=== PATIENT | male | born 1995 ===

== ENCOUNTER 2021-10-15 22:53 | Emergency (ER) | payer SELFPAY ==
--- NOTE | 2021-10-16 11:35 | XRay Report ---
Right foot-3 views INDICATION: right great toe pain and swelling.. COMPARISON: None available. IMPRESSION: There is a marginal erosion at the medial base of the great toe proximal phalanx suggest ing underlying erosive inflammatory arthropathy such as gout. Mild surrounding soft tissue swelling i s also present. Otherwise no acute osseous abnormality. Normal alignment. No significant DJD. Signer Name: Carlos Torres MD Signed: 10/16/2021 11:31 AM Workstation Name: [id number]
--- NOTE | 2021-10-16 11:39 | XRay Report ---
Right knee-3 views INDICATION: injury, pain and swelling.. COMPARISON: None available. IMPRESSION: No acute osseous abnormality. Old healed proximal fibular fracture. Normal alignment. Mi ld tricompartmental DJD. Mild soft tissue swelling about the knee especially medially and anteriorly . Signer Name: Carlos Torres MD Signed: 10/16/2021 11:34 AM Workstation Name: [id number]
[2021-10-16] MEDS ORDERED: KETOROLAC 10 MG TAB PO ONE (12:00)
[2021-10-16] MEDS ORDERED: ACETAMINOPHEN W/CODEINE 300-30 MG TAB PO ONE (12:00)
--- NOTE | 2021-10-16 12:07 | Emergency Department Report ---
ED Lower Extremity HPI - General Chief Complaint: Extremity Injury, Lower Stated Complaint: R LEG PAIN Time Seen by Provider: 10/16/21 10:55 Source: EMS Mode of arrival: Wheelchair Limitations: No Limitations - History of Present Illness Initial Comments: 26-year-old black male with a past medical history of asthma presents to the emergency department for evaluation of right knee and foot pain. He states that a few weeks ago he dropped a weight on his right leg while working out. He states that he was seen in the ER and had ankle of his x-ray that was okay but since then he has had persistent pain and swelling to right knee along with pain to the right great toe area. He denies any other injuries. Complaint: knee injury, foot injury -: Sudden, week(s) (2-3) Injury: Knee: Right, Toes: Right Type of Injury: blunt Place: other (At the gym) Severity scale (0 -10): 9 Worsens With: weight bearing, movement, palpation Context: other (Weight fell on area) Associated Symptoms: swelling, able to partially bear weight, ambulatory - Related Data Previous Rx's Medication Instructions Recorded Last Taken Type Ibuprofen [Motrin 600 MG tab] 600 mg PO Q8H PRN #30 tablet 10/16/21 Unknown Rx Allergies Allergy/AdvReac Type Severity Reaction Status Date / Time No Known Allergies Allergy Unverified 10/16/21 11:01 ED Review of Systems ROS: Stated complaint: R LEG PAIN Other details as noted in HPI Comment: All other systems reviewed and negative Constitutional: denies: chills, fever Respiratory: denies: shortness of breath, SOB with exertion, SOB at rest Cardiovascular: denies: chest pain, palpitations, dyspnea on exertion, orthopnea, edema, syncope, paroxysmal nocturnal dyspnea Gastrointestinal: denies: abdominal pain, nausea, vomiting Genitourinary: denies: urgency, dysuria Musculoskeletal: denies: back pain Neurological: denies: headache, weakness, numbness, paresthesias ED Past Medical Hx - Social History Smoking Status: Never Smoker Substance Use Type: None - Medications Home Medications: Home Medications Medication Instructions Recorded Confirmed Last Taken Type Ibuprofen [Motrin 600 MG tab] 600 mg PO Q8H PRN #30 tablet 10/16/21 Unknown Rx ED Physical Exam - General Limitations: No Limitations General appearance: alert, in no apparent distress - Head Head exam: Present: atraumatic, normocephalic - Eye Eye exam: Present: normal appearance. Absent: conjunctival injection - Neck Neck exam: Present: normal inspection. Absent: tenderness - Respiratory Respiratory exam: Absent: respiratory distress - Cardiovascular Cardiovascular Exam: Present: regular rate - GI/Abdominal GI/Abdominal exam: Absent: distended - Expanded Lower Extremity Exam Right Knee exam: Present: tenderness, swelling. Absent: normal inspection, abrasion, ecchymosis, dislocation, erythema Lower Leg exam: Present: normal inspection Ankle exam: Present: swelling Foot/Toe exam: Present: swelling (Right great toe area). Absent: normal inspection (Right great toe noted to have some swelling and healed sore), abrasion, ecchymosis, crepidus, dislocation, erythema Neuro vascular tendon exam: Present: no vascular compromise. Absent: pulse deficit, abnormal cap refill, motor deficit, sensory deficit, extremity cold to touch, pallor Gait: Positive: observed and limited by pain - Back Exam Back exam: Present: normal inspection. Absent: CVA tenderness (R), CVA tenderness (L) - Neurological Exam Neurological exam: Present: alert, oriented X3 - Psychiatric Psychiatric exam: Present: normal affect, normal mood - Skin Skin exam: Present: warm, dry, intact, normal color ED Course Vital Signs 10/15/21 10/16/21 22:55 12:21 Temperature 98.2 F Pulse Rate 74 65 Respiratory 18 16 Rate Blood Pressure 137/70 Blood Pressure 121/68 [Right] O2 Sat by Pulse 95 98 Oximetry ED Lower Extremity MDM - Radiology Data Radiology results: report reviewed, image reviewed Right knee x-ray: IMPRESSION: No acute osseous abnormality. Old healed proximal fibular fracture. Normal alignment. Mild tricompartmental DJD. Mild soft tissue swelling about the knee especially medially and anteriorly. Right foot x-ray: IMPRESSION: There is a marginal erosion at the medial base of the great toe proximal phalanx suggesting underlying erosive inflammatory arthropathy such as gout. Mild surrounding soft tissue swelling is also present. Otherwise no acute osseous abnormality. Normal alignment. No significant DJD. - Medical Decision Making 26-year-old black male with a past medical history of asthma presents to the emergency department for evaluation of right knee and foot pain. He states that a few weeks ago he dropped a weight on his right leg while working out. He states that he was seen in the ER and had ankle of his x-ray that was okay but since then he has had persistent pain and swelling to right knee along with pain to the right great toe area. He denies any other injuries Right foot and knee x-rays without any acute abnormalities noted. Patient noted to have old healed fibula fracture to right knee area. Patient is advised to take anti-inflammatories and follow-up with orthopedics or primary care provider if no improvement or worsening symptoms. He verbalized understanding of and agreement with plan of care. Critical care attestation.: If time is entered above; I have spent that time in minutes in the direct care of this critically ill patient, excluding procedure time. ED Disposition Clinical Impression: Pain of right great toe Right knee pain Qualifiers: Chronicity: acute Qualified Code(s): M25.561 - Pain in right knee Disposition: 01 HOME / SELF CARE / HOMELESS Is pt being admited?: No Does the pt Need Aspirin: No Condition: Stable Instructions: How to Use Cold Therapy, [id number], Acute Knee Pain, Adult, [id number], Joint Pain, [id number] Additional Instructions: Take medications as prescribed. Follow-up with primary care provider if no improvement or worsening symptoms. Prescriptions: Ibuprofen [Motrin 600 MG tab] 600 mg PO Q8H PRN #30 tablet PRN Reason: Pain Referrals: PRIMARY CARE, [Primary Care Provider] - 3-5 Days Forms: Work/School Release Form(ED) Time of Disposition: 12:06
[2021-10-16 12:23] VITALS: BP 121/68
== END 2021-10-16 12:23 | disposition home or self-care (01) ==
LOC: ED 22:53
DX: M79.674 Pain in right toe(s) (principal); M25.561 Pain in right knee; W22.8XXA Striking against or struck by other objects, initial encounter; Y93.89 Activity, other specified; Y92.89 Other specified places as the place of occurrence of the external cause; Y99.8 Other external cause status
CPT/HCPCS: 99283